=== PATIENT | female | born 1960 | race Caucasian/White ===

== ENCOUNTER 2016-10-31 09:27 | Day surgery (SDC) | payer BC ==
[2016-10-31 10:15] VITALS: BP 158/99; PULSE 98; RESP 14; TEMP 97.8; O2SAT 100
[2016-10-31 11:10] VITALS: BP 131/89; PULSE 91; RESP 18; TEMP 98.1; O2SAT 100
[2016-10-31 11:25] VITALS: BP 132/90; PULSE 92; RESP 18; O2SAT 100
--- NOTE | 2016-10-31 11:42 | RADRPT ---
EXAM DATE/TIME: 10/31/2016 10:19 [facility] COMPARISON: No previous studies available for comparison. Outside PET CT examination was reviewed. INDICATIONS : Enlarged and hypermetabolic right groin lymph node. MEDICAL HISTORY : History of right calf melanoma. SURGICAL HISTORY : Tonsillectomy. ENCOUNTER: Initial ACUITY: 1 day PAIN SCORE: 2/10 LOCATION: Right groin. ORGAN: Right groin lymph node. SPECIMENS: Five core specimen(s) submitted for pathologic evaluation. DEVICE: 18 gauge Temno needle Post procedure scanning reveals no hematoma or other complication. The possibility does exist that the tissue obtained will be non-diagnostic. If the sample is non-elida gnostic a repeat biopsy or surgical biopsy may need to be performed. TECHNIQUE: 1. Ultrasound guidance for needle biopsy. 2. Needle biopsy. The risks, benefits, and alternatives to ultrasound guided needle biopsy were explained to the patien t in detail including the risk of bleeding and infection. Written and verbal informed consent was ob tained. With the patient on the ultrasound table, images were obtained. In the right inguinal region there a re 3 lymph nodes identified with the largest corresponding to the hypermetabolic lesion on PET CT. Th is lymph node measures 2.0 x 1.0 x 0.6 cm. It demonstrates normal morphology with a thin capsule and normal fatty hilum. Overlying skin was prepped and draped in the usual sterile fashion and Lidocaine was utilized as a local anesthetic. A needle was advanced into the identified target and the number of specimens as above obtained and narvaez bmitted for pathologic evaluation. The patient tolerated the procedure well and left the ultrasound suite in stable condition. CONCLUSION: Uncomplicated ultrasound guided needle biopsy of the abnormal hypermetabolic right inguinal lymph nod e. Teo Coe MD on October 31, 2016 at 11:39 Board Certified Radiologist. This report was verified electronically.
[2016-10-31] MEDS ORDERED: LIDOCAINE HCL 1% PF 30 ML VIAL ONE (14:43)
[2016-10-31] MEDS ORDERED: SODIUM BICARBONATE 8.4% INJ 50 ML ONE (14:43)
== END 2016-10-31 11:25 | disposition home or self-care (01) ==
LOC: HRAD 09:27 → HRIP 09:30 → HRAD 11:25
PROVIDERS: ATTEND Surgery Trauma Surgery
DX: R59.1 Generalized enlarged lymph nodes (principal); D76.3 Other histiocytosis syndromes; Z85.820 Personal history of malignant melanoma of skin
CPT/HCPCS: 38505; 76942; 88305

== ENCOUNTER 2016-11-21 12:46 | Day surgery (SDC) | payer BC ==
[2016-11-21 14:43] VITALS: BP 118/79; PULSE 72; RESP 16; TEMP 97; O2SAT 95
[2016-11-21] MEDS ORDERED: SODIUM BICARBONATE 8.4% INJ 50 ML ONE (16:01)
[2016-11-21] MEDS ORDERED: LIDOCAINE HCL 1% PF 30 ML VIAL ONE (16:01)
--- NOTE | 2016-11-21 23:24 | RADRPT ---
EXAM DATE/TIME: 11/21/2016 13:15 [facility] COMPARISON: EXTERNAL COMPARISON: US GUIDED LYMPH NODE BIOSPY, RT, October 31, 2016, 10:19. [place], PET/CT - TUMOR WHOLE BOD Y, Oct 18 2016. INDICATIONS : Right groin lymph adenopathy, abnormal PET scan. 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 Recent PET CT scan documented normal size lymph nodes with mild hypermetabolic activity in the right inguinal region. Initial biopsy of t he largest lymph node demonstrated sinus histiocytosis. A repeat biopsy is being performed to minimiz e the chance for sampling error. SURGICAL HISTORY : Tonsillectomy. Right groin lymph node biopsy. ENCOUNTER: Subsequent ACUITY: 3 weeks PAIN SCORE: 0/10 LOCATION: Right groin. ORGAN: Right lymph node groin. SPECIMENS: Eight core specimen(s) submitted for pathologic evaluation. DEVICE: 16 gauge Temno needle Post procedure scanning reveals no hematoma or other complication. The possibility does exist that the tissue obtained will be non-diagnostic. If the sample is non-elida gnostic a repeat biopsy or surgical biopsy may need to be performed. TECHNIQUE: 1. Ultrasound guidance for needle biopsy. 2. Needle biopsy. The risks, benefits, and alternatives to ultrasound guided needle biopsy were explained to the patien t in detail including the risk of bleeding and infection. Written and verbal informed consent was ob tained. With the patient on the ultrasound table, images were obtained. Images demonstrate a normal appearin g lymph node in the right inguinal region measuring 1.2 x 0.5 x 0.5 cm as well as a adjacent normal a ppearing lymph node measuring 2.0 x 0.6 x 0.6 cm. Overlying skin was prepped and draped in the usual sterile fashion and Lidocaine was utilized as a local anesthetic. A needle was advanced into both lymph nodes in the right angle region and the number of specimens as above obtained and submitted for pathologic evaluation. The patient tolerated the procedure well and left the ultrasound suite in stable condition. CONCLUSION: Uncomplicated ultrasound guided needle biopsy of 2 lymph nodes in the right inguinal region. Teo Coe MD on November 21, 2016 at 23:07 Board Certified Radiologist. This report was verified electronically.
== END 2016-11-21 14:45 | disposition home or self-care (01) ==
LOC: HRAD 12:46 → HRIP 12:48 → HRAD 14:45
PROVIDERS: ATTEND Surgery Trauma Surgery
DX: R59.0 Localized enlarged lymph nodes (principal)
CPT/HCPCS: 38505; 76942; 88305; 88341; 88342